=== PATIENT | male | born 1990 | race Caucasian/White ===

== ENCOUNTER 2017-04-12 20:12 | Emergency (ER) | payer OTHER ==
--- NOTE | 2017-04-12 21:01 | RAD ---
LEFT FOOT RADIOGRAPHS THREE VIEWS 04/12/17 PROVIDED CLINICAL HISTORY: Left foot pain status post injury. FINDINGS: There is no evidence for fracture or other acute osseous abnormality. If there is persistent clinical concern, conservative management and followup imaging are advised. IMPRESSION: As above. POS: [facility]
[2017-04-12] MEDS ORDERED: Bupivacaine 0.5% 10 ML VIAL ONE (21:50)
[2017-04-12] MEDS ORDERED: Bacitracin Zinc 1 Packet ONE (22:07)
== END 2017-04-12 22:30 | disposition home or self-care (01) ==
LOC: ERS 20:12
DX: S91.202A Unspecified open wound of left great toe with damage to nail, initial encounter (principal); F41.9 Anxiety disorder, unspecified; F17.210 Nicotine dependence, cigarettes, uncomplicated; W20.8XXA Other cause of strike by thrown, projected or falling object, initial encounter
CPT/HCPCS: 11730; 99406; J3490